=== PATIENT | male | born 1955 | race Caucasian/White ===

== ENCOUNTER → 2017-02-16 | Outpatient (CLI) | payer BC ==
[~2017-02-16] MED LIST: ASPI81TA28 PO
--- NOTE | 2017-02-16 14:06 | DIAGNOSTIC IMAGING REPORT ---
LUMBAR SPINE 5 VIEWS CLINICAL HISTORY: Low back pain. FINDINGS: Five views of the lumbar spine are obtained. No prior studies are available for comparison at the time of dictation. The skeletal structures are osteopenic. There is no radiographic evidence of fracture or malalignment. Vertebral body height is maintained throughout the lumbar spine. There is lumbar levocurvature centered at L3-L4. There are small anterior and lateral marginal osteophytes seen throughout. The transverse and spinous processes are intact. There is no evidence of spondylolysis. Moderate disc space narrowing and endplate sclerosis is seen at L4-L5. Mild disc space narrowing is seen throughout the remainder of the lumbar spine. The bony pelvis is intact as visualized. There is a nonobstructed abdominal bowel gas pattern. Midline suture material is noted. IMPRESSION: 1. No acute bony abnormality is seen involving the lumbar spine. 2. Osteopenia with lumbosacral spondylosis and scoliosis as above. Dictated: 02/16/2017 1:31 PM Transcribed: 02/16/2017 2:06 PM [facility] Electronically signed by: Edward Faust M.D. 02/16/2017 2:08 PM Dictated Date/Time: 02/16/2017 1:31 PM
== END | disposition home or self-care (01) ==
LOC: C.RAD1850 12:45
PROVIDERS: ATTEND Student in an Organized Health Care Education/Training Program
DX: M54.5 Low back pain (principal); M85.80 Other specified disorders of bone density and structure, unspecified site; M47.817 Spondylosis without myelopathy or radiculopathy, lumbosacral region; M41.9 Scoliosis, unspecified